=== PATIENT | male | born 1935 | race Caucasian/White ===

== ENCOUNTER 2020-03-09 09:32 | Outpatient (CLI) | payer MEDICARE, SELFPAY ==
--- NOTE | 2020-03-09 10:00 | CT_ITS ---
WS: [id number] CT CHEST TECHNIQUE: Contrast enhanced CT of the chest with coronal and sagittal reformatted images. CLINICAL INFORMATION: R22.30 - Localized swelling, mass and lump, unspecified upper limb COMPARISON: None. DLP: 1068.[address] scans at [facility] use at least one of these dose optimization techniques: automat ed exposure control; mA and/or kV adjustment per patient size (includes targeted exams where dose is matched to clinical indication); or iterative reconstruction. FINDINGS: Palpable marker left axilla. A few prominent lymph nodes left axilla with a small amount of inflammatory stranding. Superficial hazy induration near the palpable marker may represent celluliti s or thrombophlebitis. No drainable fluid collections. This could followed up with ultrasound. Noncalcified nodule superior segment right lower lobe measuring 5 mm. Subsegmental atelectasis in the lingula and left lower lobe. Mild chronic emphysematous changes. No acute pulmonary infiltrates. No focal pneumonia or pleural fluid. Subsegmental atelectasis in right middle lobe. No mediastinal or hilar lymphadenopathy. Normal calibe r thoracic aorta. Aortic calcification. No mediastinal or hilar lymphadenopathy. Adrenal glands are n ormal. Cholecystectomy clips. Fatty atrophy of the pancreas. Hypertrophic changes thoracic spine. CT/CT chest w con* [id number] IMPRESSION: 1. Noncalcified 5 mm nodule superior segment right lower lobe. Recommend 12 mo nth follow-up 2. Small amount of inflammatory stranding and induration in the superficial an d deep left axilla in the area of palpable marker. A few prominent lymph nodes measuring up to 10 mm. This may represent cellulitis or thrombophlebitis. This can be followed up with ultrasound. Recommend clinical correlation. 3. No drainable fluid collections. 4. Moderate chronic emphysematous changes. 5. Aortic calcification. 6. Cholecystectomy clips.
[2020-03-09 10:30] LABS: Blood Urea Nitrogen 9 mg/dL (8-23)
[2020-03-09] MEDS: iohexol 300 mg/mL 100 mL Btl IV (10:41)
== END 2020-03-09 09:33 | disposition home or self-care (01) ==
LOC: RADWPI 09:38
PROVIDERS: PCP Registered Nurse; Visit Provider Surgery
DX: R22.30 Localized swelling, mass and lump, unspecified upper limb (principal); I70.0 Atherosclerosis of aorta
CPT/HCPCS: 71260; 82565; 84520; Q9967